=== PATIENT | female | born 1985 | race Two or more races ===

== ENCOUNTER 2021-07-02 17:54 | Emergency (ER) | payer MEDICAID, OTHER ==
[~2021-07-02] VITALS: Ht 167.6 cm; Wt 108.9 kg
[2021-07-02] MEDS ORDERED: ACETAMINOPHEN 500 MG TAB PO ONE (18:15)
[2021-07-02 22:05] VITALS: BP 121/42
== END 2021-07-02 22:47 | disposition home or self-care (01) ==
LOC: ER 17:54
DX: U07.1 COVID-19 (principal); R51.9 Headache, unspecified; R53.83 Other fatigue
CPT/HCPCS: 36415; 87426

== ENCOUNTER 2023-07-09 15:52 | Emergency (ER) | payer MEDICAID ==
[~2023-07-09] VITALS: Ht 167.6 cm; Wt 112.0 kg
[2023-07-09] MEDS ORDERED: LORazepam 0.5 MG TAB PO ONE (17:30)
[2023-07-09 17:54] VITALS: TEMP 99.6
[2023-07-09] MEDS ORDERED: HYDR-3682 PO (19:16)
[2023-07-09 19:55] LABS: Urine Bacteria NONE SEEN /hpf (None Seen); Urine Blood Negative /uL (Negative); Urine Clarity HAZY (Clear); Urine Color Yellow (Yellow); Urine Mucus FEW (None Seen); Urine Protein, UAD 2+ (Negative); Urine Specific Gravity 1.024 (1.001-1.035); Urine Urobilinogen Normal (Negative); Urine WBC 12 /hpf (0 - 5)
[2023-07-09 20:10] VITALS: BP 147/97; PULSE 101; RESP 20; O2SAT 100
[2023-07-09] MEDS ORDERED: CYCL-837 PO (20:35)
== END 2023-07-09 20:41 | disposition home or self-care (01) ==
LOC: ER 15:52
DX: F41.9 Anxiety disorder, unspecified (principal); R94.31 Abnormal electrocardiogram [ECG] [EKG]
CPT/HCPCS: 81001; 93005